=== PATIENT | male | born 1950 | race Two or more races ===

== ENCOUNTER 2021-02-08 13:51 | Outpatient (CLI) | payer OTHER, MEDICAID | END 2021-02-08 20:17 | disposition home or self-care (01) | LOC: SMI 13:51 | PROVIDERS: ATTEND Psychiatry & Neurology Neurology | DX: G31.89 Other specified degenerative diseases of nervous system (principal); G93.89 Other specified disorders of brain; J34.89 Other specified disorders of nose and nasal sinuses; J34.2 Deviated nasal septum; R56.9 Unspecified convulsions | CPT/HCPCS: 70551 ==